=== PATIENT | male | born 1990 | race Caucasian/White ===

== ENCOUNTER 2020-08-18 07:52 | Outpatient (CLI) | payer BC, OTHER, SELFPAY ==
[2020-08-18 08:29] LABS: Basophils Percent Auto 0.5 % (0.2-1.2); Eosinophils Absolute Auto 0.1 K/mm3 (0-0.3); Eosinophils Percent Auto 1.1 % (0-4.4); Hematocrit 49.1 % (42.0-52.0); Hemoglobin 16.5 g/dL (14.0-18.0); Immature Granulocyte Absolute 0.01 K/mm3 (0.00-0.031); Immature Granulocyte Percent A 0.2 % (0-0.5); Lymphocytes Absolute Auto 1.73 K/mm3 (0.9-3.2); Lymphocytes Percent Auto 39.1 % (18.3-44.2); Mean Corpuscular HGB Conc 33.6 g/dl (32-36); Mean Corpuscular Hemoglobin 29.5 pg (26-34); Mean Corpuscular Volume 87.8 fl (80-100); Monocytes Absolute Auto 0.3 K/mm3 (0.1-0.6); Monocytes Percent Auto 7.4 % (2.6-8.5); Neutrophils Absolute Auto 2.3 K/mm3 (1.3-6.7); Neutrophils Percent Auto 51.7 % (45.5-73.1); Platelet Count Result 186 k/mm3 (150-375); Red Blood Count 5.59 M/mm3 (4.6-6.20); Red Cell Distribution Width 12.5 % (11.5-14.5); White Blood Count 4.4 K/mm3 (4.5-10.0)
[2020-08-18 08:43] LABS: Alanine Aminotransferase 27 U/L (4-50); Albumin Level 4.4 g/dL (3.5-5.1); Alkaline Phosphatase 58 U/L (38-126); Anion Gap 5 mmol/L (8-16); Aspartate Amino Transferase 32 U/L (17-59); Bilirubin,Total 0.6 mg/dL (0.2-1.3); Blood Urea Nitrogen 22 mg/dL (9-20); Calcium 9.3 mg/dL (8.4-10.2); Carbon Dioxide 32 mmol/L (22-30); Chloride 100 mmol/L (98-107); Cholesterol 144 mg/dL (0-200); Estimated Glomerular Filt Rate > 60; Glucose 105 mg/dL (75-110); HDL Direct 29 mg/dL; Potassium 4.8 mmol/L (3.4-5.0); Sodium 137 mmol/L (137-145); Triglycerides 64 mg/dL (<150)
[2020-08-18 08:54] LABS: LDL Cholesterol Direct 100 mg/dL
[2020-08-18 09:13] LABS: Thyroid Stimulating Hormone 0.754 uIU/mL (0.465-4.680)
== END 2020-08-18 07:53 | disposition home or self-care (01) ==
PROVIDERS: PCP Family Medicine; Visit Provider Physician Assistant
DX: Z00.00 Encounter for general adult medical examination without abnormal findings (principal)
CPT/HCPCS: 36415; 80053; 80061; 84443; 85025

== ENCOUNTER 2020-10-18 15:22 | Outpatient (CLI) | payer BC, SELFPAY ==
--- NOTE | ~2020-10-18 | XR_ITS ---
EXAMINATION: XR hand LT min 3V DATE: 10/18/2020 15:43 INDICATION: Sprain of the left first metacarpophalangeal joint. TECHNIQUE: Posteroanterior, oblique and lateral views of the left hand were obtained. COMPARISON: None. FINDINGS: Alignment is normal. No fracture. Joint spaces are normal. Soft tissues are unremarkable. IMPRESSION: 1. . Negative left hand radiographs. Reviewed, dictated and finalized at location H. TOOLS REPAIRER
== END 2020-10-18 15:23 | disposition home or self-care (01) ==
LOC: ANHIMG 15:29
PROVIDERS: PCP Family Medicine; Visit Provider Physician Assistant
DX: S63.659A Sprain of metacarpophalangeal joint of unspecified finger, initial encounter (principal); X58.XXXA Exposure to other specified factors, initial encounter
CPT/HCPCS: 73130

== ENCOUNTER 2021-10-13 13:16 | Emergency (ER) | payer BC, SELFPAY ==
--- NOTE | ~2021-10-13 | XR_ITS ---
EXAMINATION: XR chest 2V DATE: 10/13/2021 14:02 INDICATION: Midsternal chest pain TECHNIQUE: PA and lateral views of the chest are obtained. COMPARISON: None available FINDINGS: The lungs are free of acute opacities. There is no pleural effusion or pneumothorax. The ca rdiomediastinal silhouette is normal. The visualized bones and soft tissues are unremarkable. IMPRESSION: 1. No acute cardiopulmonary abnormality. Reviewed, dictated and finalized at location A. CLERK
[2021-10-13 13:33] VITALS: BP 114/68; PULSE 80; RESP 18; TEMP 36.8; O2SAT 98
--- NOTE | 2021-10-13 13:47 | ED.URI ---
HPI - URI/Sore Throat General Chief Complaint: Chest Pain Stated Complaint: Lt ear pain,abdominal pain,mid chest pain Time Seen by Provider: 10/13/21 13:35 Source: patient and RN notes reviewed Mode of arrival: ambulatory Limitations: no limitations History of Present Illness HPI Narrative: Ketan is a 31-year-old male patient who ambulated into the [facility]. Patient states he has had epigastric pain since . Patient was at work as a day care teacher develop mid sternal/epigastric pain and states that they gave him an ice pack and it went away . Patient denies any racing of his heart. Patient states he has sore throat ,sinus congestion, back ,and abdominal pain accompanying this. Patient had a negative Covid test on . Patient states that the symptoms started 1 week ago. Patient has a long history of GERD. Patient has not been taking his Pepcid daily. Patient has been using Tums frequently lately MD elicited complaint: sore throat and sinus pain Related Data Allergies Allergy/AdvReac Type Severity Reaction Status Date / Time No Known Allergies Allergy Unverified 10/16/20 15:59 Review of Systems Review of Systems: CONSTITUTIONAL: Denies body aches, fever, chills, or sweats. EYES: Denies visual changes, redness, or discharge. ENT: Denies rhinorrhea, +congestion, + sore throat, + otalgia. CARDIOVASCULAR: Denies chest pain, palpitations, or edema. RESPIRATORY: Denies cough or dyspnea. GASTROINTESTINAL: Denies , nausea, vomiting, or diarrhea.+ abdominal pain GENITOURINARY: Denies dysuria or hematuria. SKIN: Denies rash, itching, or wounds. MUSCULOSKELETAL: Denies , joint pain, or myalgia : + back pain NEUROLOGIC: Denies headache, numbness, tingling, or weakness. PSYCH: Denies depression or anxiety. All systems reviewed & are unremarkable except as noted in HPI and below PMFSH Family History Family History Mother Family history of thyroid disease Grandparent Diabetes mellitus Family history of cardiovascular disease Malignant neoplasm of prostate Family history of malignant neoplasm of breast Social History Social History Smoking status: Never smoker Alcohol intake: current Comments At time of signature, I have reviewed and agree with nursing past medical, surgical, social and family history unless otherwise noted. Please see nursing chart for further information. There is no relevant family history pertinent to the presenting complaint Exam Narrative: GENERAL: Well-appearing, well-nourished, and in no acute distress. HEAD: Normocephalic, atraumatic. EYES: EOMI. No redness or drainage. Conjunctivae normal. ENT: Mucous membranes pink and moist. Nasal passages erythematous with clear rhinorrhea. Bilateral tympanic membranes are dull with bulging posterior pharynx is erythemic with mild drainage Uvula midline. NECK: Normal AROM. Supple. bilateral anterior cervical lymphadenopathy. CHEST: No respiratory distress. Clear to auscultation. HEART: Regular rate and rhythm. No murmur appreciated. Normal peripheral pulses. ABDOMEN: Soft, nontender, nondistended, normal active bowel sounds. MUSCULOSKELETAL: No bony tenderness. EXTREMITIES: Normal range of motion. No edema. SKIN: Warm, dry, no rash. Capillary refill normal. Normal skin turgor. NEURO: No focal deficits. Alert and oriented x3. Gait steady. PSYCH: Normal affect. No signs of depression or anxiety. Course Course Emergency Course: Patient's EKG was normal. Chest x-ray was normal. Patient's heart rate is regular without murmur. Patient's blood pressure is 114/68. Patient does seem to have symptoms of a sinus infection. Patient has moderately bulging tympanic membranes with no erythema. Tympanic membranes are opaque. Patient has right-sided sinus pain. Patient has been taking [id number] medications for the last 7 to 10
--- NOTE | 2021-10-13 13:52 | ECG_ITS ---
Measurements Intervals [place] Rate: 72 P: 62 NV: 133 QRS: 80 QRSD: 92 T: 45 QT: 355 QTc: 389 Interpretive Statements SINUS RHYTHM BASELINE ARTIFACT- I, III, AVL NORMAL ECG Electronically Signed On 10-13-2021 14:47:05 [employer]K [employer] ASSEMBLER by Trevor Freire D.O.
[2021-10-13] MEDS: BELLADONNA ALK/PHENOB ELIX 10 ML, MAG HYDROX/ALUMINUM HYD/SIMETH 30 ML, LIDOCAINE HCL 2... PO (14:00)
== END 2021-10-13 14:48 | disposition home or self-care (01) ==
PROVIDERS: Emergency Provider Nurse Practitioner Family; PCP Family Medicine
DX: J01.10 Acute frontal sinusitis, unspecified (principal); K21.9 Gastro-esophageal reflux disease without esophagitis
CPT/HCPCS: 71046; 93005; 99213; A9270; G0463

== ENCOUNTER 2023-03-04 16:09 | Outpatient (CLI) | payer OTHER, SELFPAY ==
--- NOTE | ~2023-03-04 | US_ITS ---
EXAMINATION: US soft tissue groin RT, US soft tissue groin LT DATE: 03/04/2023 16:36 INDICATION: N50.819 - Testicular pain, unspecified . TECHNIQUE: Grayscale and Doppler ultrasound images of the left and right groin were obtained. COMPARISON: Scrotal ultrasound, same date. FINDINGS: No hernia visualized. Normal appearing bilateral inguinal lymph nodes. No solid or cystic m ass. IMPRESSION: No sonographic abnormality detected in the left or right groin. Reviewed, dictated and finalized at location K. IMPRESSION: No sonographic abnormality detected in the left or right groin.
--- NOTE | ~2023-03-04 | US_ITS ---
EXAMINATION: US scrotum doppler DATE: 03/04/2023 16:36 INDICATION: N50.819 - Testicular pain, unspecified . TECHNIQUE: Grayscale and Doppler ultrasound images of the testes were obtained. COMPARISON: None. FINDINGS: The right testis measures 4.8 x 2.5 x 3.4 cm. The left testis measures 4.6 x 2.4 x 3.7 cm. No testicular mass. There is normal vascular flow to both testes. The right epididymis is normal with normal vascular flow. The left epididymis is normal with normal vascular flow. Small bilateral hydro yesica. No varicoceles. IMPRESSION: Small bilateral hydroceles. Otherwise normal scrotal ultrasound findings. Reviewed, dictated and finalized at location K.
== END 2023-03-04 16:10 ==
LOC: GOSHIMG 16:09
PROVIDERS: PCP Family Medicine; Visit Provider Nurse Practitioner
DX: R10.31 Right lower quadrant pain (principal); N50.819 Testicular pain, unspecified; N43.3 Hydrocele, unspecified
CPT/HCPCS: 76870; 76882; 93976

== ENCOUNTER 2023-05-29 09:04 | Emergency (ER) | payer OTHER, SELFPAY ==
--- NOTE | ~2023-05-29 | XR_ITS ---
EXAMINATION: XR mandible min 4V INDICATION: Left facial pain TECHNIQUE: Four views of the mandible are obtained. COMPARISON: None available FINDINGS: Bone alignment is normal. No fracture is identified. There is left facial soft tissue swell ing. The paranasal sinuses appear clear. IMPRESSION: 1. No facial fracture identified. If there is high clinical suspicion for fracture, further evaluatio n with CT of the facial bones is recommended. Reviewed, dictated and finalized at location B. IMPRESSION: 1. No facial fracture identified. If there is high clinical suspicion for fract ure, further evaluation with CT of the facial bones is recommended.
[2023-05-29 09:16] VITALS: BP 125/67; PULSE 65; RESP 16; TEMP 36.8; O2SAT 99
--- NOTE | 2023-05-29 09:22 | ED.GENADULT ---
HPI - General Adult General Chief complaint: Unspecified Stated complaint: Left Side Face Pain Time Seen by Provider: 05/29/23 09:24 Source: patient, RN notes reviewed and old records reviewed Mode of arrival: ambulatory Limitations: no limitations History of Present Illness HPI narrative: 32-year-old male presents to the [facility] with complaints of left-sided face pain after getting hit in the jaw with a soft ball yesterday. Swelling noted, tenderness to the lower posterior mandible. Patient reports that it was bleeding from his teeth yesterday. Has decreased range of motion, unable to open fully. No treatment prior to arrival Onset (ago): day(s) (1) Related Data Home Medications Medication Instructions Recorded Confirmed No Home Medications 10/31/21 05/29/23 Allergies Allergy/AdvReac Type Severity Reaction Status Date / Time No Known Allergies Allergy Verified 05/29/23 09:18 Review of Systems Review of Systems: All systems reviewed & are unremarkable except as noted in HPI and below Constitutional: Constitutional: Reports no additional constitutional complaints Eyes: Eyes: Reports no additional eye complaints ENT: Reports as per HPI and Reports other (Jaw pain, left) Cardiovascular: Cardiovascular: Reports no additional cardiovascular complaints, Denies chest pain and Denies dyspnea Respiratory: Respiratory: Reports no additional respiratory complaints, Denies chest congestion, Denies cough and Denies dyspnea Gastrointestinal: Gastrointestinal: Reports no additional gastrointestinal complaints, Denies abdominal pain, Denies nausea and Denies vomiting Musculoskeletal: Musculoskeletal: Reports no additional musculoskeletal complaints Integumentary/Breasts: Skin/Breast: Reports system reviewed and no additional complaints, except as docu Neurologic: Reports system reviewed and no additional complaints, except as documented Psychiatric: Psychiatric: Reports no additional psychiatric complaints Allergic/Immunologic: Allergic/Immunologic: Reports no additional allergic/immunologic complaints [facility] Family History Family History Mother Family history of thyroid disease Grandparent Diabetes mellitus Family history of cardiovascular disease Malignant neoplasm of prostate Family history of malignant neoplasm of breast Social History Social History Smoking status: Never smoker Alcohol intake: current Lack of Transportation: No Lack of Food: Never True Current Housing: I Have Housing Concerned About Future Housing: No Difficulty Paying Gas/Electric Bills: No Difficulty Paying for Meds: No Currently Unemployed: No Education: Bachelor's Degree Difficulty w/ Childcare or Family Care: No Comments At the time of my signature, I reviewed and agree with the nursing past medical, surgical, social, and family history. There is no relevant family history pertinent to the patient complaint. Exam Const: General: cooperative, healthy appearing, comfortable, no acute distress, well developed, alert and well nourished Nutritional Appearance: well nourished Orientation/consciousness: patient oriented x3 Limitations: no limitations HENMT: Head: normal to inspection Head images: 1. Swelling with tenderness to palpation. Ears: hearing grossly normal bilaterally, external ears normal, TM's normal bilaterally and EAC's normal Face/Nose/Sinus: Normal external nose present, Normal nares present, Normal nasal mucous membranes and turbinates present and face symmetric Face and sinus: normal facial exam Mouth: Yes Normal oral and palatal mucosa present, Yes lip normal and Yes moist mucous membranes Throat: posterior oropharynx normal and uvula midline Other: Unable to get a good exam of the for gingiva due to inability to open jaw. Eyes: General: appearance normal, both eyes a
== END 2023-05-29 10:25 | disposition short-term general hospital (02) ==
PROVIDERS: Emergency Provider Nurse Practitioner; PCP Family Medicine
DX: R68.84 Jaw pain (principal); W21.07XA Struck by softball, initial encounter
CPT/HCPCS: 70110; 99213; G0463

== ENCOUNTER 2023-11-12 11:20 | Emergency (ER) | payer OTHER, SELFPAY ==
--- NOTE | ~2023-11-12 | XR_ITS ---
EXAMINATION: XR wrist LT min 3V DATE: 11/12/2023 11:54 INDICATION: Left wrist pain TECHNIQUE: Posteroanterior, ulnar deviation, oblique, and lateral views of the left wrist were obtain ed. COMPARISON: 10/18/2020 FINDINGS: No fracture, dislocation, or subluxation. The bones, soft tissues, and joint spaces are nor mal. IMPRESSION: 1. No acute osseous abnormality. Reviewed, dictated and finalized at location L. COURSE KEEPER
[2023-11-12 11:37] VITALS: BP 112/65; PULSE 70; RESP 18; TEMP 36; O2SAT 100
--- NOTE | 2023-11-12 12:13 | ED.UPPEXIN ---
HPI - Extremity Injury (Upper) General Chief Complaint: Extremity Injury, Upper Stated Complaint: upper extremity injury Time Seen by Provider: 11/12/23 12:00 Source: patient, RN notes reviewed and old records reviewed Mode of arrival: ambulatory Limitations: no limitations History of Present Illness HPI narrative: 33-year-old male patient [facility] with complaint left wrist pain it started earlier today after patient was running and fell into a brick wall. Patient states extended hand out to catch self. Patient tried ice and Tylenol with no relief. Patient denies any injuries. MD complaint: injury to: left and wrist Onset (ago): hour(s) (3) Other Extremity Injury: Left: wrist Related Data Home Medications Medication Instructions Recorded Confirmed No Home Medications 10/31/21 11/12/23 Allergies Allergy/AdvReac Type Severity Reaction Status Date / Time No Known Allergies Allergy Verified 05/29/23 09:18 Review of Systems Constitutional: Constitutional: Reports no additional constitutional complaints Eyes: Eyes: Reports no additional eye complaints ENT: Reports system reviewed and no additional complaints, except as documented Cardiovascular: Cardiovascular: Reports no additional cardiovascular complaints Respiratory: Respiratory: Reports no additional respiratory complaints Musculoskeletal: Musculoskeletal: Reports as per HPI, Denies numbness, Denies radiating pain into limb, Denies stiffness and Denies tingling Comments: Left wrist pain Neurologic: Reports system reviewed and no additional complaints, except as documented [facility] Past Medical History Medical History Costochondritis Strain of left hamstring Tinea pedis of right foot Surgical History Surgical History History of mandibular surgery Family History Family History Mother Family history of thyroid disease Grandparent Diabetes mellitus Family history of cardiovascular disease Malignant neoplasm of prostate Family history of malignant neoplasm of breast Social History Social History Smoking status: Never smoker Alcohol intake: current Lack of Transportation: No Lack of Food: Never True Current Housing: I Have Housing Concerned About Future Housing: No Difficulty Paying Gas/Electric Bills: No Difficulty Paying for Meds: No Currently Unemployed: No Education: Bachelor's Degree Difficulty w/ Childcare or Family Care: No Comments At the time of my signature, I reviewed and agree with the nursing past medical, surgical, social, and family history. There is no relevant family history pertinent to the patient complaint. Exam Const: General: cooperative, healthy appearing, no acute distress and well nourished Nutritional Appearance: well nourished Orientation/consciousness: patient oriented x3 Limitations: no limitations HENMT: Head: normal to inspection and normocephalic Ears: external ears normal, TM's normal bilaterally, mastoids normal and Abnormal EAC present Face/Nose/Sinus: normal facial exam Face and sinus: normal facial exam Mouth: Yes Normal oral and palatal mucosa present, Yes oropharynx normal and Yes moist mucous membranes Throat: posterior oropharynx normal, tonsils normal, uvula midline and no uvular edema Eyes: General: appearance normal, both eyes and all related structures Sclera: sclerae normal Pupils: Equal, round and reactive pupils present Resp: Effort & Inspection: normal respiratory effort, able to speak in complete sentences, no audible wheezes, no cough, no respiratory distress and no retractions Cardio: Rate: regular rate Skin: General skin exam: normal color and no rashes or lesions noted Neuro: General: patient oriented x3 Cr
== END 2023-11-12 12:29 | disposition home or self-care (01) ==
PROVIDERS: Emergency Provider Registered Nurse; PCP Family Medicine
DX: S63.502A Unspecified sprain of left wrist, initial encounter (principal); W18.39XA Other fall on same level, initial encounter
CPT/HCPCS: 73110; 99213; A4565; G0463

== ENCOUNTER 2023-12-24 08:17 | Emergency (ER) | payer OTHER, SELFPAY ==
--- NOTE | 2023-12-24 08:30 | ED.GENADULT ---
HPI - General Adult General Chief complaint: Upper Respiratory Infection Stated complaint: Sore Throat Source: patient, RN notes reviewed and old records reviewed Mode of arrival: ambulatory Limitations: no limitations History of Present Illness HPI narrative: 33-year-old male patient presents to [facility] with complaint of Sore throat, fever, chills, headache, myalgias started Thursday. Patient taking [id number] ibuprofen with no relief. Patient denies cough, chest pain, shortness of breath, dizziness, weakness MD complaint: sore throat Onset (ago): day(s) (4) Related Data Allergies Allergy/AdvReac Type Severity Reaction Status Date / Time No Known Allergies Allergy Verified 12/24/23 08:49 Review of Systems Constitutional: Constitutional: Reports no additional constitutional complaints, Reports body ache(s), Reports chills, Denies fatigue, Reports fever(s) and Reports headache(s) Eyes: Eyes: Reports no additional eye complaints and Denies blurry vision ENT: Reports system reviewed and no additional complaints, except as documented, Denies vertigo, Denies dizziness, Denies ear discharge, Reports otalgia, Denies facial pain, Denies headache(s), Reports nasal congestion, Denies nasal discharge, Denies sinus pain, Denies sinus pressure and Reports sore throat Cardiovascular: Cardiovascular: Reports no additional cardiovascular complaints, Denies chest pain, Denies chest pain at rest, Denies rapid heart rate and Denies dyspnea Respiratory: Respiratory: Reports no additional respiratory complaints, Denies chest congestion, Denies cough, Denies pain on inspiration, Denies pain with cough and Denies dyspnea Gastrointestinal: Gastrointestinal: Denies abdominal pain, Denies diarrhea, Denies nausea and Denies vomiting Integumentary/Breasts: Skin/Breast: Denies rash Neurologic: Reports system reviewed and no additional complaints, except as documented, Denies vertigo, Denies dizziness and Denies headache(s) Endocrine: Endocrine: Denies fatigue PMFSH Past Medical History Medical History Costochondritis Strain of left hamstring Tinea pedis of right foot Surgical History Surgical History History of mandibular surgery Family History Family History Mother Family history of thyroid disease Grandparent Diabetes mellitus Family history of cardiovascular disease Malignant neoplasm of prostate Family history of malignant neoplasm of breast Social History Social History Smoking status: Never smoker Alcohol intake: current Lack of Transportation: No Lack of Food: Never True Current Housing: I Have Housing Concerned About Future Housing: No Difficulty Paying Gas/Electric Bills: No Difficulty Paying for Meds: No Currently Unemployed: No Education: Bachelor's Degree Difficulty w/ Childcare or Family Care: No Comments At the time of my signature, I reviewed and agree with the nursing past medical, surgical, social, and family history. There is no relevant family history pertinent to the patient complaint. Exam Const: General: cooperative, healthy appearing, no acute distress and well nourished Nutritional Appearance: well nourished Orientation/consciousness: patient oriented x3 Limitations: no limitations HENMT: Head: normal to inspection and normocephalic Ears: external ears normal, TM's normal bilaterally, mastoids normal and Abnormal EAC present Face/Nose/Sinus: normal facial exam Face and sinus: normal facial exam Mouth: Yes Normal oral and palatal mucosa present, Yes oropharynx normal and Yes moist mucous membranes Throat: uvula midline, abnormal tonsil bilateral erythema and exudates, posterior oropharynx abnormal erythema and exudates and no uvular edema Eyes: Gen
[2023-12-24 08:37] VITALS: BP 125/76; PULSE 111; RESP 16; TEMP 37.5; O2SAT 98
== END 2023-12-24 09:05 | disposition home or self-care (01) ==
PROVIDERS: Emergency Provider Registered Nurse; PCP Family Medicine
DX: J02.0 Streptococcal pharyngitis (principal)
CPT/HCPCS: 87880; 99213; G0463

== ENCOUNTER 2023-12-26 17:18 | Emergency (ER) | payer OTHER, SELFPAY ==
--- NOTE | 2023-12-26 17:22 | ED.GENADULT ---
HPI - General Adult General Chief complaint: Upper Respiratory Infection Stated complaint: follow up for strep throat/neck/jaw pain now Time Seen by Provider: 12/26/23 17:22 Source: patient, RN notes reviewed and old records reviewed Mode of arrival: ambulatory Limitations: no limitations History of Present Illness HPI narrative: 33-year-old male per returns to the [facility], was evaluated 2 days ago, diagnosed with strep, started on antibiotics. Patient has had 5 doses of amoxicillin, states he is not feeling better. Now having some left ear pain. Wants to make sure that he does not have an ear infection. Discussed with patient that amoxicillin is treatment for ear infection. Reports that he has been taking Tylenol a Motrin. Patient reports that when he had strep last time in 2016, 8 years ago that after 2 days he was feeling better. Denies fevers Onset (ago): day(s) Treatments prior to arrival: NSAID and other (Antibiotic) Related Data Allergies Allergy/AdvReac Type Severity Reaction Status Date / Time No Known Allergies Allergy Verified 12/26/23 17:27 Review of Systems Review of Systems: All systems reviewed & are unremarkable except as noted in HPI and below Constitutional: Constitutional: Reports no additional constitutional complaints Eyes: Eyes: Reports no additional eye complaints ENT: Reports as per HPI, Reports otalgia, Reports sore throat and Denies throat swelling Cardiovascular: Cardiovascular: Reports no additional cardiovascular complaints, Denies chest pain and Denies dyspnea Respiratory: Respiratory: Reports no additional respiratory complaints, Denies chest congestion, Denies cough and Denies dyspnea Gastrointestinal: Gastrointestinal: Reports no additional gastrointestinal complaints, Denies abdominal pain, Denies nausea and Denies vomiting Musculoskeletal: Musculoskeletal: Reports no additional musculoskeletal complaints Integumentary/Breasts: Skin/Breast: Reports system reviewed and no additional complaints, except as docu Neurologic: Reports system reviewed and no additional complaints, except as documented Psychiatric: Psychiatric: Reports no additional psychiatric complaints Allergic/Immunologic: Allergic/Immunologic: Reports no additional allergic/immunologic complaints PMFSH Past Medical History Medical History Costochondritis Strain of left hamstring Tinea pedis of right foot Surgical History Surgical History History of mandibular surgery Family History Family History Mother Family history of thyroid disease Grandparent Diabetes mellitus Family history of cardiovascular disease Malignant neoplasm of prostate Family history of malignant neoplasm of breast Social History Social History Smoking status: Never smoker Alcohol intake: current Lack of Transportation: No Lack of Food: Never True Current Housing: I Have Housing Concerned About Future Housing: No Difficulty Paying Gas/Electric Bills: No Difficulty Paying for Meds: No Currently Unemployed: No Education: Bachelor's Degree Difficulty w/ Childcare or Family Care: No Comments At the time of my signature, I reviewed and agree with the nursing past medical, surgical, social, and family history. There is no relevant family history pertinent to the patient complaint. Exam Const: General: cooperative, healthy appearing, comfortable, no acute distress, well developed, alert and well nourished Nutritional Appearance: well nourished Orientation/consciousness: patient oriented x3 Limitations: no limitations HENMT: Head: normal to inspection Ears: hearing grossly normal bilaterally, external ears normal, TM's normal bilaterally, EAC's normal and mastoids normal Face/Nose/Sinus: Kendy
[2023-12-26 17:27] VITALS: BP 135/81; PULSE 84; RESP 16; TEMP 37; O2SAT 99
== END 2023-12-26 17:56 | disposition home or self-care (01) ==
PROVIDERS: Emergency Provider Nurse Practitioner; PCP Family Medicine
DX: J02.0 Streptococcal pharyngitis (principal)
CPT/HCPCS: 99213; G0463